=== PATIENT | male | born 1950 | race Caucasian/White ===

== ENCOUNTER 2018-07-20 14:24 | Observation (INO) | payer MEDICARE, OTHER ==
[~2018-07-20] VITALS: Ht 177.8 cm; Wt 81.0 kg
[2018-07-20 14:32] VITALS: BP 131/70
[2018-07-20] MEDS ORDERED: LIDOCAINE-MPF 1%, 5ML ONE (14:50)
[2018-07-20] MEDS ORDERED: DIPH,PERTUSS(ACELL),TET VAC/PF 0.5 ML IM-VACC ONE ×2 (14:51→15:00)
[2018-07-20] MEDS ORDERED: LIDOCAINE 1%, 10ML INFIL ONE (15:00)
[2018-07-20] MEDS ORDERED: SODIUM CHLORIDE FLUSH 10ML SYR IVF ONE (16:30)
[2018-07-20] MEDS ORDERED: CEFAZOLIN PMX 1GM/50ML 50 ML IVPB ONE (16:30)
[2018-07-20] MEDS ORDERED: CEFAZOLIN PMX 1GM/50ML 50 ML ONE (16:52)
[2018-07-20] MEDS ORDERED: FENTANYL PF 100 MCG/2ML ONE (17:28)
[2018-07-20] MEDS ORDERED: MIDAZOLAM 1 MG/ML, 2ML ONE (17:28)
[2018-07-20] MEDS ORDERED: ONDANSETRON 2MG/ML, 2ML ONE (17:54)
[2018-07-20] MEDS ORDERED: GLYCOPYRROLATE 0.2MG/1ML, 5ML ONE (17:54)
[2018-07-20] MEDS ORDERED: PROPOFOL 10 MG/ML, 20ML ONE (17:54)
[2018-07-20] MEDS ORDERED: ROCURONIUM 10 MG/ML,10ML ONE (17:54)
[2018-07-20] MEDS ORDERED: DEXAMETHASONE 4 MG/ML, 1ML ONE (17:54)
[2018-07-20] MEDS ORDERED: SUCCINYLCHOLINE 20 MG/ML, 10ML ONE (17:54)
[2018-07-20] MEDS ORDERED: GENTAMICIN 80 MG/2 ML ONE (18:16)
[2018-07-20] MEDS ORDERED: MIDAZOLAM 1 MG/ML, 2ML IV PRN (18:30)
[2018-07-20] MEDS ORDERED: FENTANYL PF 100 MCG/2ML IV PRN (18:30)
[2018-07-20] MEDS ORDERED: PENICILLIN GK IV ONE (18:30)
[2018-07-20] MEDS ORDERED: EPHEDRINE 50 MG/ML, 1ML IVPush PRN (18:30)
[2018-07-20] MEDS ORDERED: DEXTROSE 5% IV ONE (18:30)
[2018-07-20] MEDS ORDERED: ALBUTEROL SULFATE 2.5 MG/3 ML NPPB PRN (18:30)
[2018-07-20] MEDS ORDERED: LABETALOL 5MG/ML, 20ML IV PRN (18:30)
[2018-07-20] MEDS ORDERED: ONDANSETRON 2MG/ML, 2ML IV PRN ×2 (18:30→20:30)
[2018-07-20] MEDS ORDERED: MORPHINE SULFATE 4 MG/ML, 1ML IVPush PRN (18:30)
[2018-07-20] MEDS ORDERED: MEPERIDINE/PF 25MG/0.5ML IVPush PRN (18:30)
[2018-07-20] MEDS ORDERED: ONDANSETRON ODT 8 MG PO PRN (18:30)
[2018-07-20] MEDS ORDERED: OXYcodone 5 MG/5 ML ORAL.SOL UDC PO PRN (18:30)
[2018-07-20] MEDS ORDERED: hydrALAzine 20 MG/ML, 1ML IV PRN (18:30)
[2018-07-20] MEDS ORDERED: PROMETHAZINE 25 MG/ML, 1ML IV PRN (18:30)
[2018-07-20] MEDS ORDERED: HYDROmorphone 1 MG/ML, 1ML IV PRN (18:30)
[2018-07-20] MEDS ORDERED: LORazepam 2 MG/ML, 1ML IVPush PRN (18:30)
[2018-07-20] MEDS ORDERED: PROMETHAZINE 12.5 MG SUPP PR PRN (18:30)
[2018-07-20] MEDS ORDERED: HALOPERIDOL 5 MG/ML IV PRN (18:30)
[2018-07-20] MEDS ORDERED: OXYcodone 5 MG/5 ML ORAL.SOL UDC ONE ×2 (19:14→19:20)
[2018-07-20] MEDS ORDERED: HYDROcodone/APAP 5/325 TABLET PO PRN (20:30)
[2018-07-20] MEDS ORDERED: ACETAMINOPHEN 325 MG TABLET PO PRN (20:30)
[2018-07-20] MEDS ORDERED: KETOROLAC 30 MG/1 ML IV SCH (20:30)
[2018-07-20] MEDS ORDERED: CEPH-368 PO (21:50)
[2018-07-20] MEDS ORDERED: TRAM50TA2 PO (21:51)
== END 2018-07-20 22:20 | disposition home or self-care (01) ==
LOC: OR 19:49 → 4NOR 19:57
PROVIDERS: ADMIT Orthopaedic Surgery; ATTEND Orthopaedic Surgery
DX: S62.603B Fracture of unspecified phalanx of left middle finger, initial encounter for open fracture (principal); W01.0XXA Fall on same level from slipping, tripping and stumbling without subsequent striking against object, initial encounter; Y93.89 Activity, other specified; Y92.89 Other specified places as the place of occurrence of the external cause; Y99.8 Other external cause status; Z23 Encounter for immunization
CPT/HCPCS: 26735; 71045; 73140; 76001; 90471; 90715; 93005; 96365; 99285; G0378; J0330; J0690; J1100; J1580; J2250; J2405; J2704; J3010; J3490

== ENCOUNTER → 2018-09-13 | Outpatient (CLI) | payer MEDICARE ==
[~2018-09-13] MED LIST: CEPH-368 PO; TRAM50TA2 PO
== END | disposition home or self-care (01) ==
LOC: CFH 07:01
PROVIDERS: ATTEND Family Medicine
DX: Z87.891 Personal history of nicotine dependence (principal)
CPT/HCPCS: 76706; 93978

== ENCOUNTER → 2021-04-10 | Outpatient (CLI) | payer MEDICARE | END | disposition home or self-care (01) | LOC: RAD 16:59 | PROVIDERS: ATTEND Internal Medicine Cardiovascular Disease | DX: Z01.818 Encounter for other preprocedural examination (principal); Z11.59 Encounter for screening for other viral diseases; E78.00 Pure hypercholesterolemia, unspecified; E78.5 Hyperlipidemia, unspecified; I45.10 Unspecified right bundle-branch block; J22 Unspecified acute lower respiratory infection; K40.90 Unilateral inguinal hernia, without obstruction or gangrene, not specified as recurrent; M25.511 Pain in right shoulder; M25.512 Pain in left shoulder; R35.0 Frequency of micturition; R55 Syncope and collapse; R94.31 Abnormal electrocardiogram [ECG] [EKG]; Z68.25 Body mass index [BMI] 25.0-25.9, adult; Z87.891 Personal history of nicotine dependence | CPT/HCPCS: 71046 ==

== ENCOUNTER 2021-05-28 07:51 | Outpatient (CLI) | payer MEDICARE ==
[~2021-05-28 07:51] MED LIST changes: +ACET325T26 PO; +CEPH-376 PO
== END 2021-05-28 23:59 | disposition home or self-care (01) ==
LOC: CFH 07:51
PROVIDERS: ATTEND Internal Medicine Cardiovascular Disease
DX: I25.10 Atherosclerotic heart disease of native coronary artery without angina pectoris (principal); E78.00 Pure hypercholesterolemia, unspecified
CPT/HCPCS: 75571